=== PATIENT | female | born 1965 | race Caucasian/White ===

== ENCOUNTER → 2016-10-12 | Outpatient (CLI) | payer BC ==
[2016-10-12 14:29] LABS: Basophils # (auto) 0 uL; Basophils % (auto) 0.6 % (0.0-2.0); Eosinophils # (auto) 0.2 uL; Eosinophils % (auto) 2.8 % (0.0-7.0); Hematocrit 39.7 % (36.0-46.0); Hemoglobin 13.3 g/dL (12.2-16.2); Lymphocytes # (auto) 3.2 uL; Lymphocytes % (auto) 40.6 % (10.0-50.0); Mean Corpuscular Hemoglobin 30.6 pg (28.0-32.0); Mean Corpuscular Hgb Conc. 33.4 g/dL (32.0-36.0); Mean Corpuscular Volume 91.5 fL (80.0-100.0); Mean Platelet Volume 9.7 fL (7.4-10.4); Monocytes # (auto) 0.6 uL; Monocytes % (auto) 7.5 % (0.0-12.0); Neutrophils # (auto) 3.8 uL; Neutrophils % (auto) 48.5 % (37.0-80.0); Platelet Count (auto) 226 10^3/uL (140-450); Red Cell Distribution Width 13.2 % (11.6-16.0); White Blood Cell 7.8 10^3/uL (4.4-10.8)
[2016-10-12 14:36] LABS: Urine Bilirubin Negative (Negative); Urine Blood Negative /uL (Negative); Urine Color Yellow (Yellow); Urine Glucose Normal (Normal); Urine Ketone Negative (Negative); Urine Mucus FEW (None Seen); Urine Nitrite Negative (Negative); Urine RBC 1 /hpf (0 - 4); Urine Squamous Epithelial Cell FEW /hpf (<5); Urine Urobilinogen Normal (Negative); Urine pH 5.5 (5.0-8.0)
[2016-10-12 15:07] LABS: Albumin 3.9 g/dL (3.4-5.0); Alkaline Phosphatase 66 U/L (45-117); Anion Gap 12 (5-15); Aspartate Aminotransferase 14 U/L (15-37); BUN/Creatinine Ratio 13.8; Bilirubin, Total 0.2 mg/dL (0.2-1.0); Blood Urea Nitrogen 13 mg/dL (7-18); Carbon Dioxide 24 mmol/L (21-32); Chloride 106 mmol/L (98-107); Cholesterol 270 mg/dL (<200); GFR African American 80 mL/min; GFR Non-African American 66 mL/min; Glucose 108 mg/dL (74-106); HDL Cholesterol 65 mg/dL (40-59); Magnesium 2.3 mg/dL (1.6-2.6); Potassium 3.7 mmol/L (3.5-5.1); Sodium 142 mmol/L (136-145); Total Protein 7.3 g/dL (6.4-8.2); Triglycerides 516 mg/dL (<150); Uric Acid 4.2 mg/dL (2.6-6.0)
[2016-10-12 15:55] LABS: Temperature: 23.5 C (20.0-25.0)
== END | disposition home or self-care (01) ==
LOC: LAB 13:56
DX: R53.83 Other fatigue (principal); J44.9 Chronic obstructive pulmonary disease, unspecified; Z12.11 Encounter for screening for malignant neoplasm of colon
CPT/HCPCS: 36415; 80053; 80061; 81001; 82306; 82607; 82672; 82746; 83735; 84443; 84484; 84550; 85025; 87086

== ENCOUNTER → 2017-01-26 | Outpatient (CLI) | payer BC ==
[~2017-01-26] MED LIST: ALBU18 IN; ALPR0.25 PO; IBU800T PO; OMEP20CA5 PO
== END | disposition home or self-care (01) ==
LOC: XY 08:03
PROVIDERS: ATTEND Internal Medicine Gastroenterology
DX: R10.9 Unspecified abdominal pain (principal)
CPT/HCPCS: 78226; A9537

== ENCOUNTER → 2017-10-16 | Outpatient (CLI) | payer BC ==
[~2017-10-16] MED LIST changes: -IBU800T PO; +IBUP800T24 PO; -OMEP20CA5 PO; +OMEP20CA74 PO
== END | disposition home or self-care (01) ==
LOC: US 12:30
PROVIDERS: ATTEND Internal Medicine
DX: E03.9 Hypothyroidism, unspecified (principal)
CPT/HCPCS: 76536

== ENCOUNTER → 2017-12-21 | Outpatient (CLI) | payer BC ==
[2017-12-21 08:22] LABS: Basophils # (auto) 0.1 uL; Basophils % (auto) 0.6 % (0.0-2.0); Eosinophils # (auto) 0.2 uL; Eosinophils % (auto) 1.9 % (0.0-7.0); Lymphocytes # (auto) 2.7 uL; Lymphocytes % (auto) 30.7 % (10.0-50.0); Mean Corpuscular Hgb Conc. 34.1 g/dL (32.0-36.0); Mean Corpuscular Volume 91.1 fL (80.0-100.0); Monocytes # (auto) 0.6 uL; Monocytes % (auto) 6.7 % (0.0-12.0); Neutrophils # (auto) 5.4 uL; Neutrophils % (auto) 60.1 % (37.0-80.0); Platelet Count (auto) 225 10^3/uL (140-450); Red Blood Cells 4.83 10^6/uL (4.0-5.20); Red Cell Distribution Width 13.4 % (11.8-14.3); White Blood Cell 8.9 10^3/uL (4.4-10.8)
[2017-12-21 08:33] LABS: Urine Bacteria NONE SEEN /hpf (None Seen); Urine Blood Negative /uL (Negative); Urine Specific Gravity 1.004 (1.001-1.035); Urine WBC 2 /hpf (0 - 5)
[2017-12-21 09:15] LABS: BUN/Creatinine Ratio 15.6; Calcium 9.6 mg/dL (8.5-10.1); Magnesium 2.4 mg/dL (1.6-2.6); Phosphorus 3.9 mg/dL (2.5-4.90); Potassium 4.2 mmol/L (3.5-5.1)
[2017-12-21 10:40] LABS: Free T3 2.91 pg/mL (2.3-4.2); Free T4 (Free Thyroxine) 1.04 ng/dL (0.89-1.76)
== END | disposition home or self-care (01) ==
LOC: LAB 06:58
PROVIDERS: ATTEND Internal Medicine
DX: Z00.01 Encounter for general adult medical examination with abnormal findings (principal); F41.9 Anxiety disorder, unspecified; R79.89 Other specified abnormal findings of blood chemistry
CPT/HCPCS: 36415; 80048; 80061; 81001; 82550; 83036; 83615; 83690; 83735; 83880; 84100; 84439; 84443; 84450; 84460; 84481; 85025

== ENCOUNTER → 2018-05-29 | Outpatient (CLI) | payer BC ==
[2018-05-29 08:47] LABS: Urine WBC None Seen /hpf (0 - 5)
[2018-05-29 09:01] LABS: Basophils # (auto) 0 uL; Basophils % (auto) 0.6 % (0.0-2.0); Eosinophils # (auto) 0.1 uL; Eosinophils % (auto) 1.5 % (0.0-7.0); Hematocrit 46.3 % (36.0-46.0); Lymphocytes # (auto) 2.3 uL; Lymphocytes % (auto) 28.8 % (10.0-50.0); Mean Corpuscular Hgb Conc. 34.5 g/dL (32.0-36.0); Mean Corpuscular Volume 92.7 fL (80.0-100.0); Monocytes # (auto) 0.6 uL; Monocytes % (auto) 7.3 % (0.0-12.0); Neutrophils # (auto) 4.9 uL; Neutrophils % (auto) 61.8 % (37.0-80.0); Nucleated Red Blood Cells % 0.2 %; Platelet Count (auto) 215 10^3/uL (140-450); Red Cell Distribution Width 13.6 % (11.8-14.3); White Blood Cell 7.9 10^3/uL (4.4-10.8)
[2018-05-29 09:06] LABS: Urine Bacteria NONE SEEN /hpf (None Seen); Urine Blood Negative /uL (Negative); Urine Specific Gravity 1.007 (1.001-1.035)
[2018-05-29 09:12] LABS: INR 0.9 (0.9-1.15); Prothrombin Time 9.7 sec (9.27-12.13)
[2018-05-29 09:38] LABS: Alanine Aminotransferase 21 U/L (13-56); Albumin 4.3 g/dL (3.4-5.0); Alkaline Phosphatase 79 U/L (45-117); Amylase 81 U/L (25-115); Anion Gap 9 (5-15); Aspartate Aminotransferase 16 U/L (15-37); BUN/Creatinine Ratio 12.2; Bilirubin, Direct < 0.1 mg/dL (0-0.2); Bilirubin, Total 0.6 mg/dL (0.2-1.0); Blood Urea Nitrogen 10 mg/dL (7-18); Calcium 9.8 mg/dL (8.5-10.1); Carbon Dioxide 26 mmol/L (21-32); Chloride 105 mmol/L (98-107); Cholesterol 310 mg/dL (< 200); Creatine Kinase IFCC 192 U/L (26-192); GFR African American 93 mL/min; GFR Non-African American 77 mL/min; Glucose 76 mg/dL (74-106); HDL Cholesterol 73 mg/dL (40-59); LDL Cholesterol 200 mg/dL (< 100); Lactate Dehydrogenase 219 U/L (84-246); Lipase 186 U/L (73-393); Phosphorus 3.6 mg/dL (2.5-4.90); Potassium 3.9 mmol/L (3.5-5.1); Sodium 140 mmol/L (136-145); Total Protein 8.9 g/dL (6.4-8.2); Triglycerides 153 mg/dL (< 150); Uric Acid 3.8 mg/dL (2.6-6.0)
[2018-05-29 16:16] LABS: Free T3 2.78 pg/mL (2.3-4.2); Free T4 (Free Thyroxine) 1.04 ng/dL (0.89-1.76); Prolactin 4.81 ng/mL (2.8-29.2); T3 Total 1.06 ng/mL (0.60-1.81)
[2018-05-29 16:17] LABS: Follicle Stimulating Hormone 109.75 IU/L (SEE BELOW)
== END | disposition home or self-care (01) ==
LOC: LAB 08:11
PROVIDERS: ATTEND Internal Medicine
DX: J44.9 Chronic obstructive pulmonary disease, unspecified (principal); E78.2 Mixed hyperlipidemia; L40.9 Psoriasis, unspecified; E03.9 Hypothyroidism, unspecified; R53.83 Other fatigue
CPT/HCPCS: 36415; 80053; 80061; 81001; 82150; 82248; 82550; 82670; 82672; 83001; 83036; 83540; 83550; 83615; 83690; 83970; 84100; 84146; 84439; 84480; 84481; 84484; 84550; 85025; 85610; 85652; 85730; 86225; 86235; 86300; 86301; 86304

== ENCOUNTER → 2019-01-03 | Outpatient (CLI) | payer BC ==
[2019-01-03 07:58] LABS: Basophils # (auto) 0.1 uL; Basophils % (auto) 0.9 % (0.0-2.0); Eosinophils # (auto) 0.2 uL; Eosinophils % (auto) 2.2 % (0.0-7.0); Hematocrit 41.9 % (36.0-46.0); Hemoglobin 14.2 g/dL (12.2-16.2); Lymphocytes # (auto) 2.6 uL; Lymphocytes % (auto) 35.5 % (10.0-50.0); Mean Corpuscular Hemoglobin 30.7 pg (28.0-32.0); Mean Corpuscular Hgb Conc. 33.8 g/dL (32.0-36.0); Mean Corpuscular Volume 90.8 fL (80.0-100.0); Monocytes # (auto) 0.7 uL; Monocytes % (auto) 9.4 % (0.0-12.0); Neutrophils # (auto) 3.9 uL; Platelet Count (auto) 220 10^3/uL (140-450); Red Blood Cells 4.62 10^6/uL (4.0-5.20); Red Cell Distribution Width 13.3 % (11.8-14.3); White Blood Cell 7.4 10^3/uL (4.4-10.8)
[2019-01-03 08:09] LABS: Albumin 3.9 g/dL (3.4-5.0); BUN/Creatinine Ratio 15.5; Calcium 9.2 mg/dL (8.5-10.1); Magnesium 2.4 mg/dL (1.6-2.6); Potassium 4.2 mmol/L (3.5-5.1); Uric Acid 4.2 mg/dL (2.6-6.0)
[2019-01-03 08:13] LABS: Bilirubin, Total 0.4 mg/dL (0.2-1.0); Total Protein 7.5 g/dL (6.4-8.2)
[2019-01-03 08:52] LABS: Urine Bacteria NONE SEEN /hpf (None Seen); Urine Blood Negative /uL (Negative); Urine Mucus FEW (None Seen); Urine Specific Gravity 1.008 (1.001-1.035); Urine WBC 2 /hpf (0 - 5)
== END | disposition home or self-care (01) ==
LOC: LAB 07:23
PROVIDERS: ATTEND Internal Medicine Cardiovascular Disease
DX: Z76.0 Encounter for issue of repeat prescription (principal); F41.9 Anxiety disorder, unspecified; L40.9 Psoriasis, unspecified; K21.9 Gastro-esophageal reflux disease without esophagitis; J44.9 Chronic obstructive pulmonary disease, unspecified
CPT/HCPCS: 36415; 80053; 80061; 81001; 82150; 82306; 82607; 83036; 83690; 83735; 84443; 84550; 85025; 86431

== ENCOUNTER → 2019-01-11 | Outpatient (CLI) | payer BC | END | disposition home or self-care (01) | LOC: XY 08:35 | PROVIDERS: ATTEND Internal Medicine | DX: K80.20 Calculus of gallbladder without cholecystitis without obstruction (principal) | CPT/HCPCS: 78226; A9537 ==

== ENCOUNTER → 2019-01-24 | Outpatient (CLI) | payer BC | END | disposition home or self-care (01) | LOC: XYW 15:46 | PROVIDERS: ATTEND Internal Medicine Gastroenterology | DX: R10.11 Right upper quadrant pain (principal); R11.2 Nausea with vomiting, unspecified | CPT/HCPCS: 76705 ==

== ENCOUNTER 2019-04-08 10:38 | Emergency (ER) | payer BC ==
[~2019-04-08] VITALS: Ht 170.2 cm; Wt 55.8 kg
[~2019-04-08 10:38] MED LIST changes: +MONT10TA23 PO; +PANT40TA2 PO
[2019-04-08] MEDS ORDERED: ONDANSETRON HCL 4 MG/2 ML VIAL IV ONE (11:00)
[2019-04-08] MEDS ORDERED: MORPHINE SULFATE 4 MG/ML SYR/VIAL IV ONE (11:00)
[2019-04-08 11:09] VITALS: BP 154/88
[2019-04-08 11:22] LABS: Basophils # (auto) 0.1 uL; Basophils % (auto) 0.8 % (0.0-2.0); Eosinophils # (auto) 0.1 uL; Eosinophils % (auto) 0.8 % (0.0-7.0); Hematocrit 42.2 % (36.0-46.0); Hemoglobin 14.4 g/dL (12.2-16.2); Lymphocytes # (auto) 5.3 uL; Mean Corpuscular Hemoglobin 31.5 pg (28.0-32.0); Mean Corpuscular Hgb Conc. 34.1 g/dL (32.0-36.0); Mean Corpuscular Volume 92.4 fL (80.0-100.0); Monocytes # (auto) 1.1 uL; Monocytes % (auto) 8.3 % (0.0-12.0); Neutrophils # (auto) 6.9 uL; Neutrophils % (auto) 51.1 % (37.0-80.0); Platelet Count (auto) 265 10^3/uL (140-450); Red Blood Cells 4.57 10^6/uL (4.0-5.20); Red Cell Distribution Width 13.7 % (11.8-14.3); White Blood Cell 13.5 10^3/uL (4.4-10.8)
[2019-04-08 11:33] LABS: Chloride 105 mmol/L (98-107); Potassium 3.4 mmol/L (3.5-5.1); Sodium 137 mmol/L (136-145)
[2019-04-08 11:44] LABS: Alanine Aminotransferase 41 U/L (13-56); Albumin 3.8 g/dL (3.4-5.0); Alkaline Phosphatase 76 U/L (45-117); Anion Gap 10 (5-15); Aspartate Aminotransferase 72 U/L (15-37); BUN/Creatinine Ratio 12.8; Bilirubin, Total 0.3 mg/dL (0.2-1.0); Blood Urea Nitrogen 11 mg/dL (7-18); Calcium 9.4 mg/dL (8.5-10.1); Carbon Dioxide 22 mmol/L (21-32); GFR African American 88 mL/min; GFR Non-African American 73 mL/min; Glucose 82 mg/dL (74-106); Total Protein 7.3 g/dL (6.4-8.2)
[2019-04-08 12:34] LABS: INR < 0.93 (0.9-1.15); Partial Thromboplastin Time 22.6 sec (23.64-32.05)
[2019-04-08] MEDS ORDERED: IOHEXOL 350 MG/ML 100ML IJ ONE (13:01)
[2019-04-08 13:53] LABS: Urine Bacteria NONE SEEN /hpf (None Seen); Urine Blood Negative /uL (Negative); Urine Mucus FEW (None Seen); Urine Specific Gravity 1.016 (1.001-1.035); Urine WBC <1 /hpf (0 - 5)
== END 2019-04-08 14:05 | disposition home or self-care (01) ==
LOC: ER 10:38 → MERGE 10:38 → EEVIPCON 10:38 → ER 14:05
DX: R07.89 Other chest pain (principal); D72.829 Elevated white blood cell count, unspecified; K29.70 Gastritis, unspecified, without bleeding; E78.5 Hyperlipidemia, unspecified; F17.210 Nicotine dependence, cigarettes, uncomplicated; Z90.710 Acquired absence of both cervix and uterus; Z88.1 Allergy status to other antibiotic agents
CPT/HCPCS: 36415; 71045; 71275; 74176; 80053; 81001; 83690; 84484; 85025; 85379; 85610; 85730; 99284; J2270; J2405; J7030; Q9967

== ENCOUNTER 2019-07-16 09:31 | Emergency (ER) | payer BC, OTHER ==
[~2019-07-16] VITALS: Ht 170.2 cm; Wt 57.2 kg
[2019-07-16 09:38] VITALS: BP 110/62
[2019-07-16] MEDS ORDERED: IBUPROFEN 800 MG TAB PO ONE ×3 (10:59→11:00)
== END 2019-07-16 10:56 | disposition home or self-care (01) ==
LOC: ER 09:34
DX: S70.11XA Contusion of right thigh, initial encounter (principal); M79.642 Pain in left hand; F17.210 Nicotine dependence, cigarettes, uncomplicated; Z88.1 Allergy status to other antibiotic agents; Z79.899 Other long term (current) drug therapy; Z79.1 Long term (current) use of non-steroidal anti-inflammatories (NSAID); Y04.1XXA Assault by human bite, initial encounter; Y93.89 Activity, other specified; Y92.89 Other specified places as the place of occurrence of the external cause; Y99.0 Civilian activity done for income or pay
CPT/HCPCS: 73130

== ENCOUNTER → 2019-08-15 | Outpatient (CLI) | payer BC ==
[2019-08-15 08:43] LABS: Urine Bacteria NONE SEEN /hpf (None Seen); Urine Blood TRACE /uL (Negative); Urine Specific Gravity 1.015 (1.001-1.035); Urine WBC <1 /hpf (0 - 5)
[2019-08-15 08:53] LABS: Basophils # (auto) 0 uL; Basophils % (auto) 0.1 % (0.0-2.0); Eosinophils # (auto) 0 uL; Hematocrit 42.5 % (36.0-46.0); Hemoglobin 14.6 g/dL (12.2-16.2); Lymphocytes # (auto) 1.1 uL; Lymphocytes % (auto) 7.5 % (10.0-50.0); Mean Corpuscular Hemoglobin 31.7 pg (28.0-32.0); Mean Corpuscular Hgb Conc. 34.2 g/dL (32.0-36.0); Mean Corpuscular Volume 92.6 fL (80.0-100.0); Monocytes # (auto) 0.8 uL; Monocytes % (auto) 5.6 % (0.0-12.0); Neutrophils # (auto) 12.9 uL; Neutrophils % (auto) 86.8 % (37.0-80.0); Platelet Count (auto) 216 10^3/uL (140-450); Red Blood Cells 4.59 10^6/uL (4.0-5.20); Red Cell Distribution Width 12.9 % (11.8-14.3); White Blood Cell 14.9 10^3/uL (4.4-10.8)
[2019-08-15 08:57] LABS: Potassium 3.6 mmol/L (3.5-5.1)
[2019-08-15 09:06] LABS: Free T4 (Free Thyroxine) 0.76 ng/dL (0.89-1.76); T3 Total 0.91 ng/mL (0.60-1.81)
[2019-08-15 09:07] LABS: Albumin 3.8 g/dL (3.4-5.0); Bilirubin, Total 0.4 mg/dL (0.2-1.0); CRP High Sensitivity 0.21 mg/dL (< 0.3); Leuteinizing Hormone 50.4 IU/L; Magnesium 2.1 mg/dL (1.6-2.6); Phosphorus 3.3 mg/dL (2.5-4.90); Total Protein 7.5 g/dL (6.4-8.2); Uric Acid 3.5 mg/dL (2.6-6.0)
[2019-08-15 09:08] LABS: Folate (Folic Acid) 15.38 ng/mL (5.38-24); Follicle Stimulating Hormone 108.47 IU/L (SEE BELOW)
== END | disposition home or self-care (01) ==
LOC: LAB 08:10
PROVIDERS: ATTEND Internal Medicine Cardiovascular Disease
DX: R53.83 Other fatigue (principal); J44.9 Chronic obstructive pulmonary disease, unspecified; K21.9 Gastro-esophageal reflux disease without esophagitis; L40.9 Psoriasis, unspecified; F41.9 Anxiety disorder, unspecified
CPT/HCPCS: 36415; 80053; 80061; 81001; 82306; 82607; 82670; 82746; 83001; 83002; 83036; 83615; 83735; 84100; 84436; 84439; 84443; 84479; 84480; 84550; 85025; 85652; 86141; 87086

== ENCOUNTER 2019-10-08 15:15 | Emergency (ER) | payer BC, OTHER ==
[~2019-10-08] VITALS: Ht 170.2 cm; Wt 56.2 kg
[2019-10-08] MEDS ORDERED: IBUPROFEN 800 MG TAB PO ONE (17:15)
[2019-10-08 17:36] VITALS: BP 124/75
== END 2019-10-08 17:54 | disposition home or self-care (01) ==
LOC: EEVIPCON 15:15 → ER 15:22
DX: S01.511A Laceration without foreign body of lip, initial encounter (principal); S63.92XA Sprain of unspecified part of left wrist and hand, initial encounter; Z88.1 Allergy status to other antibiotic agents; Y04.0XXA Assault by unarmed brawl or fight, initial encounter; Y93.89 Activity, other specified; Y92.89 Other specified places as the place of occurrence of the external cause; Y99.8 Other external cause status
CPT/HCPCS: 70486; 72170; 73060; 73090; 73130

== ENCOUNTER 2019-10-14 06:19 | Emergency (ER) | payer BC, OTHER ==
[~2019-10-14] VITALS: Ht 170.2 cm; Wt 56.2 kg
[2019-10-14 06:33] VITALS: BP 119/64
[2019-10-14] MEDS ORDERED: cefTRIAXone SOD 1,000 MG VL IM ONE (07:00)
[2019-10-14] MEDS ORDERED: methylPREDNISolone SOD SUCC 125 MG/2 ML VL IM ONE (07:00)
[2019-10-14] MEDS ORDERED: PHENAZOPYRIDINE HCL 100 MG TAB PO ONE (07:30)
== END 2019-10-14 08:05 | disposition home or self-care (01) ==
LOC: ER 06:19
DX: N39.0 Urinary tract infection, site not specified (principal); R05 Cough; F17.210 Nicotine dependence, cigarettes, uncomplicated; Z88.1 Allergy status to other antibiotic agents
CPT/HCPCS: 71046; 81002; 96372; 99283; J0696; J2930

== ENCOUNTER → 2020-08-25 | Outpatient (CLI) | payer BC ==
[2020-08-25 11:28] LABS: Alcohol, Urine < 3.0 mg/dL (0-10); Amphetamine Screen, Urine NEGATIVE (NEGATIVE); Barbiturate Scree,Urine NEGATIVE (NEGATIVE); Benzodiazephine Screen, Urine NEGATIVE (NEGATIVE); Cannabinoid Screen, Urine NEGATIVE (NEGATIVE); Cocaine Screen, Urine NEGATIVE (NEGATIVE); Opiate Scree,Urine POSITIVE (NEGATIVE); Phencyclidine Screen, Urine NEGATIVE (NEGATIVE)
== END | disposition home or self-care (01) ==
LOC: LAB 10:28
DX: Z02.89 Encounter for other administrative examinations (principal)
CPT/HCPCS: 80307